=== PATIENT | female | born 1985 | race Caucasian/White ===

== ENCOUNTER → 2020-02-24 | Outpatient (CLI) | payer BC ==
--- NOTE | 2020-02-24 11:09 | RAD ---
Examination: US GDE NDL BX/ASPIR/INJ/LOC History: LT THYROID NODULE / Comparison/Correlation: None Findings: Risks, benefits, and alternatives regarding left thyroid nodule fine-needle aspiration unde r ultrasound guidance were discussed with the patient and informed consent was obtained. Cleansing wi th ChloraPrep at the anticipated site of needle placement was performed. Sterile draping, sterile gel , and sterile probe cover is were utilized. Approximately 8 cc of 1 percent lidocaine was administere d subcutaneously and along the expected course of the needle tracks. A total of 4 samples were obtained utilizing 4 separate 25-gauge needles with their attached syringes . The laborer carpentry dock present stated the samples are adequate. The patient tolerated the procedure wel l without immediate complications. Impression: Successful left thyroid nodule fine-needle aspiration. Electronically signed by: Denny Rutherford MD (02/24/2020 11:06 AM) [id number]
--- NOTE | 2020-02-25 15:07 | PATHOLOGY ---
Note [facility] Accession Number: [id number] TESTS RESULT FLAG UNITS REF RANGE LAB Clinician Provided Cytology Information No. of containers..01 Other (Miscellaneous) Source: LT THYROID NODULE DIAGNOSIS: LT THYROID NODULE NEGATIVE FOR MALIGNANT CELLS. B[place] CATEGORY II. SPECIMEN CONSISTS OF BENIGN FOLLICULAR CELLS, HEMOSIDERIN-LADEN MACROPHAGES, COLLOID, AND BLOOD. THIS PATTERN IS CONSISTENT WITH A BENIGN FOLLICULAR NODULE. COLLOID IS PRESENT. RED BLOOD CELLS ARE PRESENT. THIS INTERPRETATION INCLUDES EVALUATION OF A CELL BLOCK. Pathologist ICD10: 02 E04.1 Signed out by: 02 Jass Vigil MD, Pathologist NPI- [id number] Performed by: Annmarie Fair, Printing Manager ([facility]) Gross description: 01 30ML, CLEAR RED, 2F 2AD 2HE /LCS 02/24/2020 1811 Local FLAG LEGEND: L-Low Normal,H-High Normal,LL-Alert Low,HH-Alert High <-Panic Low,>-Panic High,A-Abnormal,AA-Critical Abnormal Performed at: [facility] [address] [place] [address] Robles Mims MD, 02 NIKKI [facility] [address] [phone] Jass Vigil MD, Specimen Comment: A courtesy copy of this report has been sent to [phone] Specimen Comment: [id number] Specimen Comment: Report sent to Specimen Comment: A duplicate report has been generated due to demographic updates. Performed at: [address], [place] [id number] MD Robles Mims MD Phone: [phone]
== END | disposition home or self-care (01) ==
LOC: US 11:08
PROVIDERS: ATTEND Otolaryngology
DX: E04.1 Nontoxic single thyroid nodule (principal); Z79.899 Other long term (current) drug therapy
CPT/HCPCS: 10005; 76942; 88173; 88305